=== PATIENT | male | born 1970 | race African-American/Black ===

== ENCOUNTER 2017-04-27 15:15 | Inpatient (IN) ==
[2017-04-27] MEDS ORDERED: MAGNESIUM SULF RIDER 4 GM in PREMIX 1 EACH IV PRN (15:19)
[2017-04-27] MEDS ORDERED: SODIUM CHLORIDE 0.9% 1,000 ML IV ONE (15:19)
[2017-04-27] MEDS ORDERED: MAGNESIUM SULF RIDER 2 GM in PREMIX 1 EACH IV PRN (15:19)
[2017-04-27] MEDS ORDERED: POTASSIUM CHLORIDE RIDER 10 MEQ in PREMIX 1 EACH IV PRN (15:19)
[2017-04-27] MEDS ORDERED: DEXTROSE 50% 25 GM/50 ML VIAL IV PRN ×2 (15:19)
[2017-04-27] MEDS ORDERED: SODIUM BICARB INJ 100 MEQ in STERILE WATER INJ 400 ML IV PRN (15:19)
[2017-04-27 17:51] LABS: Basophils % 0.3 % (0.0-0.8); Eosinophils # 0.1 10*3/uL (0.0-0.87); Eosinophils % 0.6 % (0.00-10.9); Hematocrit 47.8 VOL% (42.0-52.0); Hemoglobin 15.6 GM/DL (14.0-18.0); Immature Granulocytes % 0.4 %; Immature Granulocytes Absolute 0.04 #; Lymphocytes # 2.9 10*3/uL (1.4-4.0); Lymphocytes % 30.3 % (21.2-54.2); Mean Corpuscular HGB Conc 32.6 GM/DL (32-36); Mean Corpuscular Hemoglobin 30 PG (27-34); Mean Corpuscular Volume 92.5 FL (87-102); Monocytes # 0.5 10*3/uL (0.11-0.8); Monocytes % 5.2 % (1.7-12.7); Neutrophils # 5.9 10*3/uL (1.4-7.4); Neutrophils % 63.2 % (38.7-73.9); Platelet Count 214 T/CUMM (130-400); Red Blood Count 5.17 MC/CUMM (3.8-5.5); Red Cell Distribution Width 12.6 % (9.3-17.3); White Blood Count 9.4 T/CUMM (4-12)
[2017-04-27 18:08] LABS: Calcium 8.3 MG/DL (8.5-10.1); Osmolality,Calculated 290.7 MOS/KG (273-304); Potassium 4.6 MMOL/L (3.5-5.1)
[2017-04-27 18:09] LABS: Magnesium 2.5 MG/DL (1.8-2.4)
[2017-04-27 18:23] LABS: ABG Base Excess -14.8 MMOL/L (-2.5-2.5); ABG HCO3 13.5 MMOL/L (20-26); ABG Oxygen Saturation 98.4 % (95-100); ABG PCO2 26.8 MM HG (35-48); ABG PH 7.242 (7.35-7.45); ABG TCO2 10.1 MMOL/L (23-27)
[2017-04-27] MEDS: INSULIN REGULAR DRIP 100 ML IV SCH (18:45)
[2017-04-27 20:12] LABS: Calcium 8.4 MG/DL (8.5-10.1); Osmolality,Calculated 287.5 MOS/KG (273-304); Potassium 4.2 MMOL/L (3.5-5.1)
[2017-04-27] MEDS ORDERED: SODIUM CHLORIDE 0.9% 1,000 ML IV SCH (20:19)
[2017-04-27] MEDS: SODIUM CHLORIDE 0.9% 1,000 ML IV SCH ×2 (20:40→22:36)
[2017-04-27] MEDS: ENOXAPARIN 40 MG/0.4 ML SYRINGE SUBCUT SCH (21:45)
[2017-04-27] MEDS ORDERED: INSULIN REGULAR 100 UNIT/ML IV ONE ×2 (21:50→22:50)
[2017-04-27 23:57] LABS: Calcium 7.9 MG/DL (8.5-10.1); Osmolality,Calculated 296.3 MOS/KG (273-304); Potassium 3.7 MMOL/L (3.5-5.1)
[2017-04-28] MEDS: SODIUM CHLORIDE 0.45% 1,000 ML IV SCH ×3 (03:15→17:22)
[2017-04-28] MEDS: INSULIN REGULAR DRIP 100 ML IV SCH ×2 (03:16→17:18)
[2017-04-28] MEDS: DEXTROSE 5% NACL 0.45% 1,000 ML IV SCH ×2 (04:20→13:34)
[2017-04-28 04:57] LABS: Basophils % 0.5 % (0.0-0.8); Eosinophils # 0.1 10*3/uL (0.0-0.87); Eosinophils % 1.4 % (0.00-10.9); Hematocrit 37.7 VOL% (42.0-52.0); Hemoglobin 12.9 GM/DL (14.0-18.0); Immature Granulocytes % 0.3 %; Immature Granulocytes Absolute 0.02 #; Lymphocytes # 2.5 10*3/uL (1.4-4.0); Lymphocytes % 39.4 % (21.2-54.2); Mean Corpuscular HGB Conc 34.2 GM/DL (32-36); Mean Corpuscular Hemoglobin 31 PG (27-34); Mean Corpuscular Volume 89.5 FL (87-102); Mean Platelet Volume 12.1 FL (9.6-12.0); Monocytes # 0.6 10*3/uL (0.11-0.8); Monocytes % 9.1 % (1.7-12.7); Neutrophils # 3.1 10*3/uL (1.4-7.4); Neutrophils % 49.3 % (38.7-73.9); Platelet Count 168 T/CUMM (130-400); Red Blood Count 4.21 MC/CUMM (3.8-5.5); Red Cell Distribution Width 12.7 % (9.3-17.3); White Blood Count 6.3 T/CUMM (4-12)
[2017-04-28 05:41] LABS: Calcium 7.8 MG/DL (8.5-10.1); Magnesium 2.1 MG/DL (1.8-2.4); Potassium 3.8 MMOL/L (3.5-5.1)
[2017-04-28 06:42] LABS: Calcium 7.8 MG/DL (8.5-10.1)
[2017-04-28] MEDS: DEXT 5% NACL 0.45% KCL 20 MEQ 20 MEQ/1,000 ML BAG IV SCH ×2 (07:00→16:05)
[2017-04-28] MEDS ORDERED: SODIUM PHOSPHATE INJ 15 MMOL in SODIUM CHLORIDE 0.9% 250 ML IV ONE (07:29)
[2017-04-28 08:11] LABS: Potassium 3.7 MMOL/L (3.5-5.1)
[2017-04-28] MEDS ORDERED: PANTOPRAZOLE 40 MG VIAL IV SCH (10:30)
[2017-04-28 11:57] LABS: Calcium 7.8 MG/DL (8.5-10.1); Osmolality,Calculated 282.5 MOS/KG (273-304); Potassium 3.9 MMOL/L (3.5-5.1)
[2017-04-28 12:38] LABS: Apearance,Urine CLEAR (Clear); Bilirubin,Urine Negative (Negative); Blood, Urine Small mg/dL (Negative); Glucose,Urine (UA) >=500 mg/dL (Negative); Ketones,Urine 20 mg/dL (Negative); Mucus,Urine Occasional /LPF (Occasional); Nitrite,Urine Negative (Negative); Protein,Urine Negative; RBC,Urine 1 /HPF (0-4); Urine Color Yellow (Yellow); Urine Specific Gravity 1.011 (1.001-1.035); Urine Urobilinogen < 2.0 EU/DL (0.2-1.0); WBC,Urine 1 /HPF (0-6)
[2017-04-28 14:33] LABS: Calcium 7.7 MG/DL (8.5-10.1); Osmolality,Calculated 278.7 MOS/KG (273-304); Potassium 3.4 MMOL/L (3.5-5.1)
[2017-04-28] MEDS ORDERED: DEXTROSE 50% 25 GM/50 ML VIAL IV PRN (15:20)
[2017-04-28] MEDS ORDERED: GLUCAGON 1 MG VIAL IM PRN (15:20)
[2017-04-28] MEDS ORDERED: INSULIN NPH 100 UNIT/ML SUBCUT ONE (15:26)
[2017-04-28] MEDS: INSULIN ASPART PROTAMINE/ASPART 70/30 100 UNIT/ML SUBCUT SCH (18:00)
[2017-04-28] MEDS: INSULIN REGULAR 100 UNIT/ML SUBCUT SCH ×2 (18:02→21:29)
[2017-04-28 18:26] LABS: Calcium 7.7 MG/DL (8.5-10.1); Osmolality,Calculated 272.2 MOS/KG (273-304); Potassium 3.8 MMOL/L (3.5-5.1)
[2017-04-28] MEDS: ENOXAPARIN 40 MG/0.4 ML SYRINGE SUBCUT SCH (21:30)
[2017-04-29 07:25] LABS: Osmolality,Calculated 290.3 MOS/KG (273-304); Potassium 4.2 MMOL/L (3.5-5.1)
[2017-04-29] MEDS: INSULIN ASPART PROTAMINE/ASPART 70/30 100 UNIT/ML SUBCUT SCH ×2 (08:37→16:53)
[2017-04-29] MEDS: INSULIN REGULAR 100 UNIT/ML SUBCUT SCH ×3 (08:37→16:53)
[2017-04-29] MEDS ORDERED: PANTOPRAZOLE 40 MG TABLET PO SCH (09:00)
[2017-04-29] MEDS ORDERED: LISINOPRIL 10 MG TABLET PO SCH (10:15)
[2017-04-29] MEDS ORDERED: PRAVASTATIN 20 MG TABLET PO SCH (10:30)
[2017-04-29] MEDS ORDERED: amLODIPine 10 MG TABLET PO SCH (10:30)
[2017-04-29 10:58] LABS: PT Patient Result 10.3 SECS
[2017-04-29] MEDS ORDERED: GABAPENTIN 600 MG TABLET PO SCH (15:00)
[2017-04-29] MEDS ORDERED: WARFARIN 10 MG TABLET PO SCH (18:00)
[2017-04-29 18:06] VITALS: BP 136/91
== END 2017-04-29 17:15 | disposition home or self-care (01) | DRG 638 ==
LOC: N.CC 17:04 → N.4E 04-28 18:26
PROVIDERS: ADMIT Pediatrics; ATTEND Pediatrics

== ENCOUNTER 2017-11-10 08:45 | Inpatient (IN) ==
[2017-11-10] MEDS ORDERED: ONDANSETRON 4 MG/2 ML VIAL IV STA (09:15)
[2017-11-10] MEDS ORDERED: SODIUM CHLORIDE 0.9% 1,000 ML IV STA ×3 (09:15→10:30)
[2017-11-10] MEDS ORDERED: KETOROLAC 30 MG/1 ML VIAL IV STA (09:15)
[2017-11-10] MEDS ORDERED: METOPROLOL TARTRATE 5 MG/5 ML VIAL IV STA (09:15)
[2017-11-10] MEDS ORDERED: PANTOPRAZOLE 40 MG VIAL IV STA (09:22)
[2017-11-10] MEDS ORDERED: METOCLOPRAMIDE 10 MG/2 ML VIAL IV STA (09:22)
[2017-11-10] MEDS ORDERED: INSULIN REGULAR 100 UNIT/ML SUBCUT STA (09:34)
[2017-11-10] MEDS ORDERED: INSULIN REGULAR 100 UNIT/ML IV STA (09:34)
[2017-11-10 09:46] LABS: Basophils % 0.4 % (0.0-0.8); Hematocrit 55.2 VOL% (42.0-52.0); Hemoglobin 17.8 GM/DL (14.0-18.0); Immature Granulocytes % 0.5 %; Immature Granulocytes Absolute 0.06 #; Lymphocytes # 1.4 10*3/uL (1.4-4.0); Lymphocytes % 11.9 % (21.2-54.2); Mean Corpuscular HGB Conc 32.2 GM/DL (32-36); Mean Corpuscular Hemoglobin 30 PG (27-34); Mean Corpuscular Volume 93.1 FL (87-102); Mean Platelet Volume 13.2 FL (9.6-12.0); Monocytes # 0.5 10*3/uL (0.11-0.8); Monocytes % 4.4 % (1.7-12.7); Neutrophils # 9.4 10*3/uL (1.4-7.4); Neutrophils % 82.8 % (38.7-73.9); Platelet Count 146 T/CUMM (130-400); Red Blood Count 5.93 MC/CUMM (3.8-5.5); Red Cell Distribution Width 14.1 % (9.3-17.3); White Blood Count 11.3 T/CUMM (4-12)
[2017-11-10 09:58] LABS: PT Patient Result 10.7 SECS; Partial Thromboplastin Time 29.4 SECS (0-40)
[2017-11-10 10:23] LABS: Apearance,Urine CLEAR (Clear); Bilirubin,Urine Negative (Negative); Blood, Urine Moderate mg/dL (Negative); Glucose,Urine (UA) >=500 mg/dL (Negative); Hyaline Casts,Urine 1 /LPF (0-3); Ketones,Urine 80 mg/dL (Negative); Nitrite,Urine Negative (Negative); Protein,Urine 30 MG/DL; RBC,Urine 1 /HPF (0-4); Squamous Epithelial Cell,Urine Occasional /HPF (0-10); Urine Color Yellow (Yellow); Urine Specific Gravity 1.024 (1.001-1.035); Urine Urobilinogen < 2.0 EU/DL (0.2-1.0); WBC,Urine <1 /HPF (0-6)
[2017-11-10 10:25] LABS: Lactic Acid 4.2 MMOL/L (0.4-2.0)
[2017-11-10 10:39] LABS: Barbiturates Screen,Urine Negative (Negative); Benzodiazepines Screen,Urine Negative (Negative); Cannabinoid Screen,Urine Negative (Negative); Opiate Screen,Urine Negative (Negative); Phencyclidine Screen,Urine Negative (Negative)
[2017-11-10 10:42] LABS: Albumin 3.7 G/DL (3.4-5.0); Bilirubin,Total 0.7 MG/DL (0.2-1.0); Calcium 9.3 MG/DL (8.5-10.1); Potassium 5.7 MMOL/L (3.5-5.1)
[2017-11-10 10:45] LABS: Osmolality,Calculated 306.8 MOS/KG (273-304)
[2017-11-10] MEDS ORDERED: MAGNESIUM SULF RIDER 2 GM in PREMIX 1 EACH IV PRN (12:02)
[2017-11-10] MEDS ORDERED: SODIUM CHLORIDE 0.9% 1,000 ML IV ONE (12:02)
[2017-11-10] MEDS ORDERED: SODIUM BICARB INJ 100 MEQ in STERILE WATER INJ 400 ML IV PRN (12:02)
[2017-11-10] MEDS ORDERED: DEXTROSE 50% 25 GM/50 ML VIAL IV PRN ×3 (12:02)
[2017-11-10] MEDS ORDERED: GLUCAGON 1 MG VIAL IM PRN (12:02)
[2017-11-10] MEDS ORDERED: SODIUM PHOSPHATE INJ 30 MMOL in SODIUM CHLORIDE 0.9% 250 ML IV PRN (12:02)
[2017-11-10] MEDS ORDERED: MAGNESIUM SULF RIDER 4 GM in PREMIX 1 EACH IV PRN (12:02)
[2017-11-10] MEDS ORDERED: INSULIN REGULAR 100 UNIT/ML IV ONE (12:02)
[2017-11-10] MEDS ORDERED: MORPHINE 4 MG/1 ML VIAL IV PRN (12:15)
[2017-11-10] MEDS ORDERED: ONDANSETRON 4 MG/2 ML VIAL IV PRN (12:15)
[2017-11-10] MEDS ORDERED: ACETAMINOPHEN 325 MG TABLET PO PRN (12:15)
[2017-11-10] MEDS ORDERED: guaiFENesin/DM ER 600-30 MG TABLET PO PRN (12:15)
[2017-11-10] MEDS ORDERED: diphenhydrAMINE CAP 25 MG CAPSULE PO PRN (12:15)
[2017-11-10] MEDS ORDERED: DOCUSATE SODIUM 100 MG CAPSULE PO PRN (12:15)
[2017-11-10] MEDS ORDERED: hydrALAZINE 20 MG/1 ML VIAL IV PRN (12:19)
[2017-11-10 12:44] LABS: ABG Base Excess -25.2 MMOL/L (-2.5-2.5); ABG HCO3 8.3 MMOL/L (20-26); ABG Oxygen Saturation 98.3 % (95-100); ABG TCO2 3.5 MMOL/L (23-27)
[2017-11-10 12:50] LABS: ABG PCO2 11.2 MM HG (35-48)
[2017-11-10] MEDS ORDERED: VANCOMYCIN INJ 2,000 MG in SODIUM CHLORIDE 0.9% 500 ML IV ONE (13:30)
[2017-11-10] MEDS ORDERED: VANCOMYCIN INJ 2,000 MG in SODIUM CHLORIDE 0.9% 250 ML IV ONE (13:30)
[2017-11-10] MEDS ORDERED: ENOXAPARIN 30 MG/0.3 ML SYRINGE SUBCUT SCH (13:30)
[2017-11-10] MEDS ORDERED: VANCOMYCIN INJ 2,000 MG in SODIUM CHLORIDE 0.9% 500 ML IV PRN (13:41)
[2017-11-10] MEDS: PIPERACILLIN/TAZOBACTAM 3,375 MG in SODIUM CHLORIDE 0.9% 100 ML IV SCH ×2 (14:10→23:18)
[2017-11-10] MEDS: SODIUM CHLORIDE 0.9% 1,000 ML IV SCH ×2 (14:14→16:32)
[2017-11-10] MEDS: PANTOPRAZOLE 40 MG TABLET PO SCH (14:17)
[2017-11-10 15:03] LABS: Calcium 7.7 MG/DL (8.5-10.1); Potassium 5.2 MMOL/L (3.5-5.1)
[2017-11-10] MEDS: INSULIN REGULAR DRIP 100 ML IV SCH ×2 (15:17→21:25)
[2017-11-10 16:51] LABS: Osmolality,Calculated 309.4 MOS/KG (273-304); Potassium 4.4 MMOL/L (3.5-5.1)
[2017-11-10] MEDS ORDERED: SODIUM CHLORIDE 0.9% 1,000 ML IV SCH (17:02)
[2017-11-10 18:05] LABS: ABG Base Excess -20.6 MMOL/L (-2.5-2.5); ABG HCO3 10.1 MMOL/L (20-26); ABG Oxygen Saturation 98.9 % (95-100); ABG PH 7.213 (7.35-7.45); ABG TCO2 5.6 MMOL/L (23-27)
[2017-11-10 18:10] LABS: ABG PCO2 15.7 MM HG (35-48)
[2017-11-10] MEDS: DEXTROSE 5% NACL 0.9% 1,000 ML IV SCH (22:00)
[2017-11-10] MEDS: CARVEDILOL 6.25 MG TABLET PO SCH (23:19)
[2017-11-11 01:20] LABS: Calcium 7.5 MG/DL (8.5-10.1); Potassium 3.2 MMOL/L (3.5-5.1)
[2017-11-11] MEDS: DEXTROSE 5% NACL 0.45% 1,000 ML IV SCH ×2 (02:00→07:00)
[2017-11-11] MEDS: INSULIN REGULAR DRIP 100 ML IV SCH ×2 (02:46→10:10)
[2017-11-11] MEDS: POTASSIUM CHLORIDE RIDER 10 MEQ in PREMIX 1 EACH IV PRN ×4 (04:46→08:07)
[2017-11-11] MEDS: DEXTROSE 5% NACL 0.9% 1,000 ML IV SCH ×2 (04:47→06:11)
[2017-11-11] MEDS: SODIUM CHLORIDE 0.45% 1,000 ML IV SCH ×2 (05:16→16:08)
[2017-11-11 05:34] LABS: Basophils % 0.3 % (0.0-0.8); Eosinophils # 0.1 10*3/uL (0.0-0.87); Eosinophils % 1.2 % (0.00-10.9); Hematocrit 38.9 VOL% (42.0-52.0); Hemoglobin 13.3 GM/DL (14.0-18.0); Immature Granulocytes % 0.2 %; Immature Granulocytes Absolute 0.02 #; Lymphocytes # 1.7 10*3/uL (1.4-4.0); Lymphocytes % 19.6 % (21.2-54.2); Mean Corpuscular HGB Conc 34.2 GM/DL (32-36); Mean Corpuscular Hemoglobin 30 PG (27-34); Mean Corpuscular Volume 88.2 FL (87-102); Mean Platelet Volume 12.8 FL (9.6-12.0); Monocytes # 1.3 10*3/uL (0.11-0.8); Neutrophils # 5.5 10*3/uL (1.4-7.4); Neutrophils % 63.7 % (38.7-73.9); Platelet Count 122 T/CUMM (130-400); Red Blood Count 4.41 MC/CUMM (3.8-5.5); Red Cell Distribution Width 13.8 % (9.3-17.3); White Blood Count 8.6 T/CUMM (4-12)
[2017-11-11] MEDS: PIPERACILLIN/TAZOBACTAM 3,375 MG in SODIUM CHLORIDE 0.9% 100 ML IV SCH (06:00)
[2017-11-11] MEDS ORDERED: DEXTROSE 5% NACL 0.45% 1,000 ML IV SCH (06:56)
[2017-11-11 07:25] LABS: Calcium 7.3 MG/DL (8.5-10.1); Osmolality,Calculated 291.4 MOS/KG (273-304); Potassium 3.5 MMOL/L (3.5-5.1)
[2017-11-11 07:58] LABS: HIV Antigen/Antibody Result Nonreactive (Nonreactive); Hepatitis B Surface Ag Quant 0.13 Index; Hepatitis B Surface Ag Result Negative (Negative); Hepatitis C Virus Ab Result Negative (Negative)
[2017-11-11 08:01] LABS: Risk Ratio 4.41; Thyroid Stimulating Hormone 0.439 uIU/ml (0.358-3.74)
[2017-11-11] MEDS: CARVEDILOL 6.25 MG TABLET PO SCH ×2 (09:10→20:58)
[2017-11-11] MEDS: PANTOPRAZOLE 40 MG TABLET PO SCH (09:10)
[2017-11-11] MEDS ORDERED: VANCOMYCIN INJ 1,750 MG in SODIUM CHLORIDE 0.9% 500 ML IV SCH (10:00)
[2017-11-11] MEDS ORDERED: ALUMINUM/MAGNES/SIMETH MAX STR 30 ML UDCUP PO PRN (12:05)
[2017-11-11 12:31] LABS: Calcium 7.8 MG/DL (8.5-10.1); Osmolality,Calculated 285.8 MOS/KG (273-304); Potassium 3.2 MMOL/L (3.5-5.1)
[2017-11-11] MEDS ORDERED: POTASSIUM CHLORIDE 20 MEQ TABLET PO ONE (15:05)
[2017-11-11] MEDS: ENOXAPARIN 40 MG/0.4 ML SYRINGE SUBCUT SCH (16:09)
[2017-11-11] MEDS ORDERED: INSULIN ASPART PROTAMINE/ASPART 70/30 100 UNIT/ML SUBCUT SCH (16:30)
[2017-11-11] MEDS: INSULIN LISPRO 100 UNIT/ML SUBCUT SCH ×2 (16:50→20:58)
[2017-11-11] MEDS: ATORVASTATIN 20 MG TABLET PO SCH (20:58)
[2017-11-12] MEDS: SODIUM CHLORIDE 0.45% 1,000 ML IV SCH ×4 (00:44→23:47)
[2017-11-12 05:44] LABS: Calcium 7.5 MG/DL (8.5-10.1); Osmolality,Calculated 285.3 MOS/KG (273-304); Potassium 3.3 MMOL/L (3.5-5.1)
[2017-11-12] MEDS: INSULIN REGULAR DRIP 100 ML IV SCH (07:33)
[2017-11-12] MEDS: DEXTROSE 5% NACL 0.45% 1,000 ML IV SCH ×2 (07:34→20:55)
[2017-11-12] MEDS: INSULIN LISPRO 100 UNIT/ML SUBCUT SCH ×4 (09:13→21:38)
[2017-11-12] MEDS: INSULIN ASPART PROTAMINE/ASPART 70/30 100 UNIT/ML SUBCUT SCH (09:14)
[2017-11-12] MEDS: LISINOPRIL 5 MG TABLET PO SCH (09:16)
[2017-11-12] MEDS: PANTOPRAZOLE 40 MG TABLET PO SCH (09:16)
[2017-11-12] MEDS: CARVEDILOL 6.25 MG TABLET PO SCH ×2 (09:16→21:38)
[2017-11-12 11:34] LABS: Calcium 7.4 MG/DL (8.5-10.1); Osmolality,Calculated 288.5 MOS/KG (273-304); Potassium 3.4 MMOL/L (3.5-5.1)
[2017-11-12] MEDS: ENOXAPARIN 40 MG/0.4 ML SYRINGE SUBCUT SCH (13:03)
[2017-11-12] MEDS ORDERED: INSULIN ASPART PROTAMINE/ASPART 70/30 100 UNIT/ML SUBCUT SCH (13:47)
[2017-11-12] MEDS: ATORVASTATIN 20 MG TABLET PO SCH (21:38)
[2017-11-13 03:43] LABS: Basophils % 0.7 % (0.0-0.8); Eosinophils # 0.1 10*3/uL (0.0-0.87); Eosinophils % 1.2 % (0.00-10.9); Hematocrit 32.6 VOL% (42.0-52.0); Hemoglobin 11.3 GM/DL (14.0-18.0); Immature Granulocytes % 0.9 %; Immature Granulocytes Absolute 0.05 #; Lymphocytes # 2.6 10*3/uL (1.4-4.0); Lymphocytes % 47.1 % (21.2-54.2); Mean Corpuscular HGB Conc 34.7 GM/DL (32-36); Mean Corpuscular Hemoglobin 30 PG (27-34); Mean Corpuscular Volume 86.5 FL (87-102); Mean Platelet Volume 12.4 FL (9.6-12.0); Monocytes # 0.7 10*3/uL (0.11-0.8); Monocytes % 13.2 % (1.7-12.7); Neutrophils # 2.1 10*3/uL (1.4-7.4); Neutrophils % 36.9 % (38.7-73.9); Platelet Count 111 T/CUMM (130-400); Red Blood Count 3.77 MC/CUMM (3.8-5.5); White Blood Count 5.6 T/CUMM (4-12)
[2017-11-13 04:16] LABS: Calcium 7.9 MG/DL (8.5-10.1); Potassium 2.7 MMOL/L (3.5-5.1)
[2017-11-13 05:22] LABS: Atypical Lymphocytes Few; Eosinophils 1 % (0-10); Hypochromasia 1+; Lymphocytes 45 % (20-55); Platelet Estimate Decreased; Segmented Neutrophils 46 % (50-85); Total Cells Counted 100
[2017-11-13] MEDS ORDERED: POTASSIUM CHLORIDE 20 MEQ TABLET PO ONE (09:14)
[2017-11-13] MEDS: CARVEDILOL 6.25 MG TABLET PO SCH (09:30)
[2017-11-13] MEDS: PANTOPRAZOLE 40 MG TABLET PO SCH (09:30)
[2017-11-13] MEDS: LISINOPRIL 5 MG TABLET PO SCH (09:30)
[2017-11-13] MEDS: SODIUM CHLORIDE 0.45% 1,000 ML IV SCH (09:31)
[2017-11-13] MEDS: INSULIN ASPART PROTAMINE/ASPART 70/30 100 UNIT/ML SUBCUT SCH (09:31)
[2017-11-13] MEDS: POTASSIUM CHLORIDE RIDER 10 MEQ in PREMIX 1 EACH IV PRN (09:32)
[2017-11-13] MEDS: INSULIN LISPRO 100 UNIT/ML SUBCUT SCH ×2 (09:32→11:40)
[2017-11-13 11:28] VITALS: BP 153/86
== END 2017-11-13 11:55 | disposition home or self-care (01) | DRG 638 ==
LOC: N.ED 08:45 → SUATTDRO 12:15 → N.EDINP 12:15 → N.CC 12:33 → N.2E 11-12 01:20
PROVIDERS: ADMIT Internal Medicine; ATTEND Internal Medicine